=== PATIENT | female | born 1985 | race Caucasian/White ===

== ENCOUNTER 2016-09-30 21:34 | Emergency (ER) | payer OTHER ==
[~2016-09-30] VITALS: Ht 166.4 cm; Wt 85.5 kg
[2016-09-30 21:44] VITALS: TEMP 37.1; Ht 166.4 cm; Wt 85.5 kg
[2016-09-30] MEDS ORDERED: SODIUM CHLORIDE 0.9% 1000ML 1,000 ML IV STA (22:21)
[2016-09-30] MEDS ORDERED: ALBUT/IPRATROP 3MG/0.5MG NEB 3 ML VIAL INH STA (22:21)
[2016-09-30] MEDS ORDERED: DEXAMETHASONE SOD INJ 10 MG/ML VIAL IV ONE (22:30)
[2016-09-30 22:57] LABS: BASO % 0.5 %; BASO ABS # 0.02 K/uL (0-0.2); COMPLETE YES; HEMATOCRIT 43.7 % (37-47); IG% 0.2 %; LYMPH % 40.2 %; LYMPH ABS # 1.64 K/uL (1.2-3.4); MEAN CORPUSCULAR HEMOGLOBIN 33.2 pg (25-34); MEAN CORPUSCULAR HGB CONC 33.2 g/dl (32-36); MEAN PLATELET VOLUME 10.6 fL (7.4-10.4); NEUT % 43.1 %; PLATELET COUNT 200 K/uL (130-400); RED BLOOD COUNT 4.37 M/uL (4.2-5.4); WHITE BLOOD COUNT 4.08 K/uL (4.8-10.8)
[2016-09-30 23:16] LABS: BUN/CREATININE RATIO 10.6 (10-20); CALCIUM 8.9 mg/dl (8.5-10.1); CREATININE 0.94 mg/dl (0.60-1.20); MAGNESIUM 2.2 mg/dl (1.8-2.4); POTASSIUM 3.4 mmol/L (3.5-5.1)
[2016-10-01] MEDS ORDERED: AZITHROMYCIN 250 MG TAB PO ONE (00:15)
[2016-10-01] MEDS ORDERED: ALBUTEROL HFA 8 GM INHALER INH STA (00:15)
[2016-10-01] MEDS ORDERED: DiphenhydrAMINE HCL 50 MG/ML VIAL IV STA (00:28)
[2016-10-01 00:41] VITALS: BP 140/91; PULSE 97; O2SAT 98
[2016-10-01] MEDS ORDERED: AZIT-57 PO (00:59)
[2016-10-01] MEDS ORDERED: PRED50TA PO (00:59)
--- NOTE | 2016-10-01 01:00 | EMERGENCY ROOM VISIT NOTE ---
History First contact with patient: 22:07 Chief Complaint: ILLNESS Stated Complaint: ACHES, DIZZINESS, SORE, COUGHING History of Present Illness The patient is a 30 year old female who presents to the Emergency Department by private vehicle for evaluation of her achiness, dizziness, sore throat, and cough. She reports that she's also had a migraine headache. The patient reports a cough for last 3 days. She has had a cough to the point of feeling lightheaded and near-syncope. She denies any chest pain, hemoptysis, shortness of breath, or palpitations. The patient reports that she has had cold sweats as well as body aches. She's had diarrhea for the last 3 days as well. She reports chills. She denies any recent long distance travel. Patient is a daily smoker. She denies any use of control medications. He is no family history of blood clots or bleeding disorders. She rates her current discomfort as a 6/10. She has been using multiple [id number]-[id number] medications with moderate relief of symptoms. Review of Systems A complete 10-point Review of Systems was discussed with the patient, with pertinent positives and negatives listed in the History of Present Illness. All remaining Review of Systems questions can be considered negative unless otherwise specified. Social History Smoking Status: Current Every Day Smoker Smokeless Tobacco Use: No Alcohol Use: occasionally Marital Status: single Occupation Status: employed Current/Historical Medications Scheduled Azithromycin (Zithromax), 250 MG PO DAILY Prednisone (Prednisone), 50 MG PO DAILY Allergies Coded Allergies: Shellfish (Verified Allergy, Unknown, HIVES, 10/03/16) Physical Exam Vital Signs Date Time Temp Pulse Resp B/P Pulse Ox O2 Delivery O2 Flow Rate FiO2 10/01/16 00:41 97 18 140/91 98 Room Air 09/30/16 21:44 37.1 105 18 126/84 96 Room Air Pain Rating (0-10): 6 Physical Exam VITAL SIGNS - Vital signs and nursing notes were reviewed. GENERAL - Well nourished, well developed 30-year-old female in no acute distress. Pt communicates well with provider and answers questions appropriately. SKIN - Without rash. HEAD - NC/AT with no obvious deformities. EYES - PERRL with EOMI bilaterally. Sclera without injection. Palpebral conjunctiva pink and moist. EARS - No deformities of external structures noted on gross examination bilaterally. No pain elicited with palpation of the tragus bilaterally. External auditory canals without discharge or otorrhea. Tympanic membranes pearly lujan No retraction or bulging. No fluid or purulent material visualized behind the TM. Handle of malleus, umbo, cone of light, pars tensa/flaccid all easily visualized. NOSE - Midline and without cyanosis. No purulent drainage noted. Nasal mucosa without mucus discharge. MOUTH/OROPHARYNX - Without perioral cyanosis. Buccal mucosa pink and moist and without leukoplakia. Tongue midline with equal elevation of palate bilaterally. No tonsillar hypertrophy, erythema, or exudates noted. Good dentition noted. NECK - Neck with FROM. Supple to palpation. No lymphadenopathy noted. No nuchal rigidity. LUNGS - Chest wall symmetric without accessory muscle use, intercostals retractions, or central cyanosis. Normal vesicular breath sounds CTA B/L. No wheezes, rales, or rhonchi appreciated. CARDIAC - RRR with S1/S2. No murmur, rubs, or gallops appreciated. ABDOMEN - Abdominal contour flat without pulsations or visible masses. BS normoactive all four quadrants. No tenderness, palpable masses, hepatosplenomegaly, or ascites noted. Medical Decision & Procedures ER Provider Diagnostic Interpretation: Radiological imaging and reports were reviewed by myself. Radiologist's Interpretation as follows: CHEST 2 VIEWS ROUTINE CLINICAL HISTORY: cough/fever COMPARISON STUDY: No previous studies for comparison. FINDINGS: The bones soft tissues and hemidiaphragms are normal. The cardiomediastinal silhouette is normal. The lungs are clear. The pulmonary vasculature is normal. IMPRESSION: Negative chest. Laboratory Results 09/30/16 22:46 Red Blood Count 4.37, Mean Corpuscular Volume 100.0, Mean Corpuscular Hemoglobin 33.2, Mean Corpuscular Hemoglobin Concent 33.2, Mean Platelet Volume 10.6, Neutrophils (%) (Auto) 43.1, Lymphocytes (%) (Auto) 40.2, Monocytes (%) ( Auto) 15.0, Eosinophils (%) (Auto) 1.0, Basophils (%) (Auto) 0.5, Neutrophils # (Auto) 1.76, Lymphocytes # (Auto) 1.64, Monocytes # (Auto) 0.61, Eosinophils # ( Auto) 0.04, Basophils # (Auto) 0.02 09/30/16 22:46 Test 09/30/16 22:40 09/30/16 22:46 Influenza Type A Antigen Neg for Influ A (NEG) Influenza Type B Antigen Neg for Influ B (NEG) White Blood Count 4.08 K/uL (4.8-10.8) Red Blood Count 4.37 M/uL (4.2-5.4) Hemoglobin 14.5 g/dL (12.0-16.0) Hematocrit 43.7 % (37-47) Mean Corpuscular Volume 100.0 fL (80-100) Mean Corpuscular Hemoglobin 33.2 pg (25-34) Mean Corpuscular Hemoglobin Concent 33.2 g/dl (32-36) Platelet Count 200 K/uL (130-400) Mean Platelet Volume 10.6 fL (7.4-10.4) Neutrophils (%) (Auto) 43.1 % Lymphocytes (%) (Auto) 40.2 % Monocytes (%) (Auto) 15.0 % Eosinophils (%) (Auto) 1.0 % Basophils (%) (Auto) 0.5 % Neutrophils # (Auto) 1.76 K/uL (1.4-6.5) Lymphocytes # (Auto) 1.64 K/uL (1.2-3.4) Monocytes # (Auto) 0.61 K/uL (0.11-0.59) Eosinophils # (Auto) 0.04 K/uL (0-0.5) Basophils # (Auto) 0.02 K/uL (0-0.2) RDW Standard Deviation 48.0 fL (36.4-46.3) RDW Coefficient of Variation 13.1 % (11.5-14.5) Immature Granulocyte % (Auto) 0.2 % Immature Granulocyte # (Auto) 0.01 K/uL (0.00-0.02) Anion Gap 8.0 mmol/L (3-11) Est Creatinine Clear Calc Drug Dose 94.6 ml/min Estimated GFR () 93.7 Estimated GFR (Non- 80.8 BUN/Creatinine Ratio 10.6 (10-20) Calcium Level 8.9 mg/dl (8.5-10.1) Magnesium Level 2.2 mg/dl (1.8-2.4) Total Bilirubin 0.2 mg/dl (0.2-1) Aspartate Amino Transf (AST/SGOT) 27 U/L (15-37) Alanine Aminotransferase (ALT/SGPT) 60 U/L (12-78) Alkaline Phosphatase 91 U/L (45-117) Total Protein 7.7 gm/dl (6.4-8.2) Albumin 3.8 gm/dl (3.4-5.0) Globulin 3.9 gm/dl (2.5-4.0) Albumin/Globulin Ratio 1.0 (0.9-2) Lipase 176 U/L (73-393) Medications Administered Medications (Trade) Dose Ordered Sig/Ottoniel Route Start Time Stop Time Status Last Admin Dose Admin Sodium Chloride (Nss 1000ml) 1,000 ml @ 999 mls/hr Q1H1M STAT IV 09/30/16 22:21 09/30/16 23:21 DC 09/30/16 22:21 999 MLS/HR Dexamethasone Sodium Phosphate (Decadron Inj) 10 mg NOW ONCE IV 09/30/16 22:30 09/30/16 22:31 DC 09/30/16 22:30 10 MG Albuterol/ Ipratropium (Duoneb) 3 ml NOW STAT INH 09/30/16 22:21 09/30/16 22:23 DC 09/30/16 22:21 3 ML Albuterol (Ventolin Hfa Inhaler) 2 puffs ONE STAT INH 10/01/16 00:15 10/01/16 00:16 DC 10/01/16 00:36 2 PUFFS Azithromycin (Zithromax Tab) 500 mg NOW ONCE PO 10/01/16 00:15 10/01/16 00:16 DC 10/01/16 00:36 500 MG Diphenhydramine HCl (Benadryl Inj) 12.5 mg NOW STAT IV 10/01/16 00:28 10/01/16 00:29 DC 10/01/16 00:36 12.5 MG ED Course Patient was seen and evaluated by myself. Labs were drawn, saline lock in place. The patient was hydrated with a 1000 mL normal saline bolus. The patient was treated with 10 mg Decadron intravenously. She was provided a DuoNeb treatment. Laboratory results demonstrate mild leukopenia. The patient is not anemic. There are no significant electrolyte abnormalities. Patient was treated with azithromycin given her longevity of symptoms. She was provided an albuterol inhaler. She reports feeling flushed and itchy. She was treated with 12.5 mg Benadryl intravenously with moderate relief of symptoms. The patient was educated on following up with her primary care provider from today's visit. She was educated on worrisome symptoms for return visit to the emergency department. Patient discharged home afebrile and in good condition. Medical Decision Given the patient's presentation and stated complaint, I did elect to perform the above-mentioned workup. The patient presents to the emergency department with ongoing cough, bodyaches, and generalized illness. She is not hypoxic. She is not tachypneic. She is not overly tachycardic. Her exam is otherwise unremarkable. She's had ongoing symptoms for the past several days. She does have wheezes on exam. She responded to DuoNeb as well as Decadron. Patient was treated with azithromycin given her history of smoking. I do not suspect cardiac etiology at this point. Her symptoms are not typical for PE. The patient will follow-up with her primary care provider or return to the emergency department in the setting of any change or worsening symptoms. Patient discharged home afebrile and in good condition. In the evaluation and treatment of this patient, the following differential diagnoses were considered: SC, ASC, Dysrhythmia, Angina, Mediastinitis, GERD, Esophagitis, PE, Pneumonia, Bronchitis, Costochondritis, Rib Fracture, Zoster. Impression Primary Impression: Acute bronchitis Additional Impressions: Fever Body aches Departure Information Dispostion Home / Self-Care Condition GOOD Referrals Lyle Hubbard M.D. (PCP) Patient Instructions Bronchitis Acute, My [facility] Additional Instructions You have been seen in the emergency department today for aches, cough, fevers, dizziness. Please use the albuterol inhaler 2 puffs every 4-6 hours for the next 3-4 days and then as needed for cough. You have been prescribed Prednisone 50 mg to be taken orally once a day for the next 4 days. This is an anti-inflammatory medicine to be used to help minimize your symptoms. You should take the COMPLETE course of the medication. You were prescribed Azithromycin to be taken as prescribed. This is an antibiotic. All antibiotics have the potential to cause diarrhea. Stop this medication and contact a medical provider if you were to develop any significant adverse side effects including: wheezing, shortness of breath, passing out, vomiting, or a diffuse rash. Always take antibiotics as directed and COMPLETE the ENTIRE course regardless of the improvement of your symptoms. For pain control, you can use the following koay-jrg-exzzbpo medicines (if >12 yo): - Regular strength (325mg/tab) Tylenol (acetaminophen) 2 tabs every 4-6 hours as needed. Do not exceed 12 tablets in a 24 hour period. Avoid taking more than 4 grams (4000 mg) of Tylenol per day. This includes any other sources of acetaminophen you may take on a regular basis. - Regular strength (200 mg/tab) Advil (ibuprofen) 1-2 tabs every 4-6 hours as needed. Do not exceed a dose of 3200 mg per day. Follow-up with your primary care provider from today's visit. Return for any changing or worsening symptoms. Problem Qualifiers Primary Impression: Acute bronchitis Bronchitis organism: unspecified organism Qualified Codes: J20.9 - Acute bronchitis, unspecified Additional Impressions: Fever Fever type: unspecified Qualified Codes: R50.9 - Fever, unspecified
--- NOTE | 2016-10-01 07:40 | DIAGNOSTIC IMAGING REPORT ---
CHEST 2 VIEWS ROUTINE CLINICAL HISTORY: cough/fever COMPARISON STUDY: No previous studies for comparison. FINDINGS: The bones soft tissues and hemidiaphragms are normal. The cardiomediastinal silhouette is normal. The lungs are clear. The pulmonary vasculature is normal. IMPRESSION: Negative chest. Electronically signed by: Napoleon Pitts M.D. 10/01/2016 7:38 AM Dictated Date/Time: 10/01/2016 7:38 AM
== END 2016-10-01 01:01 | disposition home or self-care (01) ==
LOC: C.EDB 21:35 → C.EDC 10-01 01:01
DX: J20.9 Acute bronchitis, unspecified (principal); M79.1 Myalgia; F17.200 Nicotine dependence, unspecified, uncomplicated; Z91.018 Allergy to other foods

== ENCOUNTER 2016-10-03 10:47 | Emergency (ER) | payer OTHER ==
[~2016-10-03] VITALS: Ht 165.1 cm; Wt 82.6 kg
[~2016-10-03 10:47] MED LIST: AZIT-57 PO; PRED50TA PO
[2016-10-03 10:49] VITALS: TEMP 36.6; Ht 165.1 cm; Wt 82.6 kg
[2016-10-03] MEDS ORDERED: MoRPHine SULFATE 4 MG/ML 1 ML CARP\\VIAL IV STA (11:24)
[2016-10-03] MEDS ORDERED: ONDANSETRON INJ 2 MG/ML 2 ML VIAL IV STA (11:24)
[2016-10-03] MEDS ORDERED: AZIT250T PO (11:25)
[2016-10-03] MEDS ORDERED: PRED50TA PO (11:25)
--- NOTE | 2016-10-03 11:27 | EMERGENCY ROOM VISIT NOTE ---
History First contact with patient: 11:11 Chief Complaint: RIB PAIN Stated Complaint: RIB PAIN/BRONCHITIS History of Present Illness The patient is a 30 year old female who presents to the Emergency Room via private vehicle with complaints of "rib pain/bronchitis". The patient is in tears. She states that she was seen here on for 3 days of an illness which included coughing, chest congestion and phlegm. She states that she was given azithromycin and prednisone. She has been taking them as prescribed until this morning when she took all 5 of the prednisone tablets at once. She states this was an attempt to help clear the infection. It was 5, 10 mg tablets. It was a total of 50 mg 1. She states that the pain is in the right anterior inferior rib cage that began around 1 AM this morning. She rates the pain as an 8-9/10 at rest and when coughing a 20/10. There is associated shortness of breath. She has smoked in the past. She had asthma as a child. She denies any recent trauma, injury, prolonged travel, control. Review of Systems A complete 10-point Review of Systems was discussed with the patient, with pertinent positives and negatives listed in the History of Present Illness. All remaining Review of Systems questions can be considered negative unless otherwise specified. Past Medical/Surgical History Bronchitis Social History Smoking Status: Current Every Day Smoker Alcohol Use: occasionally Marital Status: single Occupation Status: employed Current/Historical Medications Scheduled Azithromycin (Zithromax), 250 MG PO DAILY Prednisone (Prednisone), 50 MG PO DAILY Allergies Coded Allergies: Shellfish (Verified Allergy, Unknown, HIVES, 10/03/16) Physical Exam Vital Signs Date Time Temp Pulse Resp B/P Pulse Ox O2 Delivery O2 Flow Rate FiO2 10/03/16 15:36 10/03/16 15:24 78 20 113/79 95 Room Air 10/03/16 13:47 74 20 120/77 95 Room Air 10/03/16 12:18 78 10/03/16 12:05 75 20 122/74 95 Room Air 10/03/16 12:05 95 Room Air 10/03/16 10:49 36.6 88 20 114/71 94 Room Air Physical Exam VITAL SIGNS - Vital signs and nursing notes were reviewed. Patient is afebrile , normotensive, non-tachycardic and is saturating on room air 94%. GENERAL -30-year-old female appearing her stated age who is in no acute distress but is tearful and appears to be in pain. Communicates well with provider and answers questions appropriately. SKIN - Without rashes. There are no breaks in the integument overlying the right anterior rib cage. HEAD - NC/AT. EYES - Sclera anicteric. Palpebral conjunctiva pink and moist with no injection noted. EARS - No deformities of external structures noted on gross examination bilaterally. NOSE - Midline and without cyanosis. No epistaxis or purulent drainage noted. MOUTH/OROPHARYNX - Without perioral cyanosis. Buccal mucosa pink and moist and without leukoplakia. Tongue midline with equal elevation of palate bilaterally. No tonsillar hypertrophy, erythema, or exudates noted. Fair dentition noted. NECK - Neck with FROM. Supple to palpation. No lymphadenopathy noted. No nuchal rigidity. No meningismus or signs of encephalitis. LUNGS - Chest wall symmetric without accessory muscle use, intercostals retractions, or central cyanosis. Normal vesicular breath sounds CTA B/L. No wheezes, rales, or rhonchi appreciated. There is pinpoint tenderness overlying the right anterior/lateral rib cage. CARDIAC - RRR with S1/S2. No murmur, rubs, or gallops appreciated. ABDOMEN - Abdominal contour without pulsations or visible masses. BS normoactive all four quadrants. There is right upper quadrant tenderness on palpation just inferior to the right rib cage. No palpable masses, hepatosplenomegaly, or ascites noted. EXTREMITIES - No clubbing or peripheral cyanosis. +5/5 strength noted in UE/LE bilaterally. NEUROLOGIC - Cranial nerves II through XII grossly intact. PSYCH - Pt is very pleasant and interacts well with examiner. Medical Decision & Procedures ER Provider Diagnostic Interpretation: RIGHT RIBS UNILATERAL WITH PA CHEST CLINICAL HISTORY: Right rib pain COMPARISON STUDY: No previous studies for comparison. FINDINGS: The erect chest reveals no pneumothorax. There is no focal pulmonary consolidation. No right-sided rib fractures are visualized. No destructive lesions are visualized on conventional radiographic imaging. IMPRESSION: No evidence of pneumothorax. No right-sided rib abnormalities identified Electronically signed by: Mathieu Fortune M.D. 10/03/2016 12:26 PM Dictated Date/Time: 10/03/2016 12:24 PM BILIARY ULTRASOUND CLINICAL HISTORY: Right upper quadrant abdominal pain COMPARISON STUDY: 05/30/2012 FINDINGS: The pancreas appears normal as visualized. No hepatic masses are visualized. The gallbladder appears sonographically normal. There is no ductal dilatation. The common bile duct measures 5 mm. There is no right-sided hydronephrosis. IMPRESSION: Normal biliary ultrasound. Electronically signed by: Mathieu Fortune M.D. 10/03/2016 12:41 PM Dictated Date/Time: 10/03/2016 12:[address] ANGIOGRAM OF THE CHEST CLINICAL HISTORY: Right-sided chest pain. COMPARISON STUDY: Chest x-ray dated 09/30/2016 TECHNIQUE: Following the IV administration of 94 mL of Optiray-320, CT angiogram of the thorax was performed from the thoracic inlet to the lung bases utilizing the pulmonary embolus protocol. Images are reviewed in the axial, sagittal, and coronal planes. IV contrast was administered without complication. MIP imaging was performed. CT DOSE: 391.08 mGy.cm FINDINGS: Mediastinal and hilar lymph nodes are at the upper limits of normal in size. There was no evidence of thoracic aortic dilatation. There were no pulmonary artery filling defects to indicate acute pulmonary embolism. No pleural effusions are visualized. There was no evidence of focal pulmonary consolidation. IMPRESSION: 1. No CT evidence of acute pulmonary embolism 2. No evidence of acute parenchymal consolidation. Electronically signed by: Mathieu Fortune M.D. 10/03/2016 2:13 PM Dictated Date/Time: 10/03/2016 2:05 PM Laboratory Results 10/03/16 11:40 Red Blood Count 4.47, Mean Corpuscular Volume 98.9, Mean Corpuscular Hemoglobin 32.0, Mean Corpuscular Hemoglobin Concent 32.4, Mean Platelet Volume 10.3, Neutrophils (%) (Auto) 78.7, Lymphocytes (%) (Auto) 16.1, Monocytes (%) (Auto) 5.0, Eosinophils (%) (Auto) 0.0, Basophils (%) (Auto) 0.1, Neutrophils # (Auto) 5.38, Lymphocytes # (Auto) 1.10, Monocytes # (Auto) 0.34, Eosinophils # (Auto) 0.00, Basophils # (Auto) 0.01 10/03/16 11:40 Test 10/03/16 11:40 10/03/16 11:45 10/03/16 11:46 10/03/16 13:40 White Blood Count 6.84 K/uL (4.8-10.8) Red Blood Count 4.47 M/uL (4.2-5.4) Hemoglobin 14.3 g/dL (12.0-16.0) Hematocrit 44.2 % (37-47) Mean Corpuscular Volume 98.9 fL (80-100) Mean Corpuscular Hemoglobin 32.0 pg (25-34) Mean Corpuscular Hemoglobin Concent 32.4 g/dl (32-36) Platelet Count 194 K/uL (130-400) Mean Platelet Volume 10.3 fL (7.4-10.4) Neutrophils (%) (Auto) 78.7 % Lymphocytes (%) (Auto) 16.1 % Monocytes (%) (Auto) 5.0 % Eosinophils (%) (Auto) 0.0 % Basophils (%) (Auto) 0.1 % Neutrophils # (Auto) 5.38 K/uL (1.4-6.5) Lymphocytes # (Auto) 1.10 K/uL (1.2-3.4) Monocytes # (Auto) 0.34 K/uL (0.11-0.59) Eosinophils # (Auto) 0.00 K/uL (0-0.5) Basophils # (Auto) 0.01 K/uL (0-0.2) RDW Standard Deviation 48.1 fL (36.4-46.3) RDW Coefficient of Variation 13.3 % (11.5-14.5) Immature Granulocyte % (Auto) 0.1 % Immature Granulocyte # (Auto) 0.01 K/uL (0.00-0.02) Prothrombin Time 10.4 SECONDS (9.0-12.0) Prothromb Time International Ratio 1.0 (0.9-1.1) Activated Partial Thromboplast Time 27.8 SECONDS (21.0-31.0) Partial Thromboplastin Ratio 1.1 Anion Gap 12.0 mmol/L (3-11) Est Creatinine Clear Calc Drug Dose 87.4 ml/min Estimated GFR () 88.0 Estimated GFR (Non- 75.9 BUN/Creatinine Ratio 19.2 (10-20) Calcium Level 8.7 mg/dl (8.5-10.1) Magnesium Level 2.2 mg/dl (1.8-2.4) Total Bilirubin 0.5 mg/dl (0.2-1) Aspartate Amino Transf (AST/SGOT) 42 U/L (15-37) Alanine Aminotransferase (ALT/SGPT) 74 U/L (12-78) Alkaline Phosphatase 77 U/L (45-117) Total Creatine Kinase 78 U/L (26-192) Creatine Kinase MB < 0.5 ng/ml (0.5-3.6) Creatine Kinase MB Ratio (0-3.0) Total Protein 7.6 gm/dl (6.4-8.2) Albumin 4.0 gm/dl (3.4-5.0) Globulin 3.6 gm/dl (2.5-4.0) Albumin/Globulin Ratio 1.1 (0.9-2) Lipase 221 U/L (73-393) Thyroid Stimulating Hormone (TSH) 0.908 uIu/ml (0.300-4.500) Influenza Type A Antigen Neg for Influ A (NEG) Influenza Type B Antigen POS for Influ B (NEG) Bedside Troponin I 0.000 ng/ml (0-0.045) Urine Color YELLOW Urine Appearance CLEAR (CLEAR) Urine pH 5.0 (4.5-7.5) Urine Specific [place] 1.026 (1.000-1.030) Urine Protein NEG (NEG) Urine Glucose (UA) NEG (NEG) Urine Ketones TRACE (NEG) Urine Occult Blood NEG (NEG) Urine Nitrite NEG (NEG) Urine Bilirubin NEG (NEG) Urine Urobilinogen NEG (NEG) Urine Leukocyte Esterase NEG (NEG) Urine Test NEG (NEG) Medications Administered Medications (Trade) Dose Ordered Sig/Ottoniel Route Start Time Stop Time Status Last Admin Dose Admin Morphine Sulfate (MoRPHine SULFATE INJ) 4 mg NOW STAT IV 10/03/16 11:24 10/03/16 11:26 DC 10/03/16 11:55 4 MG Ondansetron HCl (Zofran Inj) 4 mg NOW STAT IV 10/03/16 11:24 10/03/16 11:26 DC 10/03/16 11:55 4 MG Ketorolac Tromethamine (Toradol Inj) 30 mg NOW STAT IV 10/03/16 14:47 10/03/16 14:48 DC 10/03/16 15:09 30 MG Medical Decision Patient was seen and evaluated as above. Previous visit was reviewed. She was previously diagnosed with bronchitis and provided with azithromycin and a steroid. On previous visit she was found to be influenza negative. She presents today with an acute worsening of her symptoms as well as right anterior rib pain. There is concern for cardiac etiologies, as well as pulmonary causes. Right upper quadrant causes could also not be excluded. IV access was initiated and the above workup was performed. She requested something for pain, and therefore was given morphine and Zofran. CBC reveals no leukocytosis, or anemia. PT/INR within normal limits. CMP reveals BUN of 19 , who said 112, AST at 42. See troponin was 0 and TSH within lipase within normal limits. Chest x-ray with ribs was unremarkable. Gallbladder ultrasound unremarkable. The patient had persistent pain and shortness of breath therefore was confirmed concern for PE. I did elect to obtain a CT scan of the chest. This was negative for acute process. Her urine revealed trace ketone, and was negative. She was found to be positive for influenza B. I do suspect that the patient is experiencing pleurisy secondary to influenza. There is no evidence of pneumonia or PE. Discussed the case with my attending, and subsequently it was decided to provide her with Toradol as well as treat with outpatient anti-inflammatories for the pleurisy. Of abnormal note, her EKG did reveal nonspecific ST abnormalities, without evidence of acute ectopy or ischemic change. There is no previous for comparison. With her troponin being negative I do not suspect any acute cardiac causes however do believe that a repeat with her family doctor would be warranted. I do believe that she should also have her AST repeated she has had an interval elevation of this value. She is to follow-up with her family doctor regarding today's visit, was educated upon management, was educated upon worrisome symptoms which to return and was discharged home in good condition. In evaluation treatment this patient the following differential diagnoses were entertained: NC, PE, pleurisy, pericarditis, influenza, bronchitis, pneumonia, cholecystitis, choledocholithiasis, among others. Impression Primary Impression: Pleurisy with influenza Additional Impression: Elevated AST (SGOT) Departure Information Dispostion Home / Self-Care Condition [employer] Referrals Lyle Hubbard M.D. (PCP) Patient Instructions [facility] Additional Instructions You were seen in the emergency department for your right anterior rib pain. Chest x-ray, and CTA does not reveal any fracture or evidence of blood clot. There is no evidence of pneumonia. Your AST, which is a liver chemical was slightly elevated. Please follow-up with your family doctor regarding this. It is recommended you have an EKG repeated, there was a nonspecific ST abnormality noted here. Please follow-up with your family doctor regarding this. Please follow up with your family doctor regarding today's visit by calling them first thing tomorrow. Please return to emergency department with any new/ concerning symptoms. Please alternate Tylenol and ibuprofen. Please take this according to package instructions. Please do not exceed the recommendations according to the package. Please rest and drink plenty of fluids. It is recommended you drink water or Gatorade. Problem Qualifiers
[2016-10-03 11:52] LABS: HEMATOCRIT 44.2 % (37-47); MEAN CELL VOLUME 98.9 fL (80-100); MEAN CORPUSCULAR HGB CONC 32.4 g/dl (32-36); MEAN PLATELET VOLUME 10.3 fL (7.4-10.4); PLATELET COUNT 194 K/uL (130-400); RED BLOOD COUNT 4.47 M/uL (4.2-5.4); WHITE BLOOD COUNT 6.84 K/uL (4.8-10.8)
[2016-10-03 12:05] VITALS: O2SAT 95
[2016-10-03 12:08] LABS: PARTIAL THROMBOPLASTIN RATIO 1.1; PROTHROMBIN TIME (PATIENT) 10.4 SECONDS (9.0-12.0)
[2016-10-03 12:15] LABS: ALT/SGPT 74 U/L (12-78); AST/SGOT 42 U/L (15-37); BLOOD UREA NITROGEN 19 mg/dl (7-18); BUN/CREATININE RATIO 19.2 (10-20); CALCIUM 8.7 mg/dl (8.5-10.1); CARBON DIOXIDE 23 mmol/L (21-32); CHLORIDE 105 mmol/L (98-107); CREATININE 0.99 mg/dl (0.60-1.20); GLUCOSE 112 mg/dl (70-99); MAGNESIUM 2.2 mg/dl (1.8-2.4); POTASSIUM 3.6 mmol/L (3.5-5.1); SODIUM 140 mmol/L (136-145)
[2016-10-03 12:18] LABS: BASO % 0.1 %; BASO ABS # 0.01 K/uL (0-0.2); COMPLETE YES; IG% 0.1 %; LYMPH % 16.1 %; NEUT % 78.7 %
[2016-10-03 12:27] LABS: ALB/GLOB RATIO 1.1 (0.9-2); ALKALINE PHOSPHATASE 77 U/L (45-117); THYROID STIMULATING HORMONE 0.908 uIu/ml (0.300-4.500)
--- NOTE | 2016-10-03 12:28 | DIAGNOSTIC IMAGING REPORT ---
RIGHT RIBS UNILATERAL WITH PA CHEST CLINICAL HISTORY: Right rib pain COMPARISON STUDY: No previous studies for comparison. FINDINGS: The erect chest reveals no pneumothorax. There is no focal pulmonary consolidation. No right-sided rib fractures are visualized. No destructive lesions are visualized on conventional radiographic imaging. IMPRESSION: No evidence of pneumothorax. No right-sided rib abnormalities identified Electronically signed by: Mathieu Fortune M.D. 10/03/2016 12:26 PM Dictated Date/Time: 10/03/2016 12:24 PM
--- NOTE | 2016-10-03 12:43 | DIAGNOSTIC IMAGING REPORT ---
BILIARY ULTRASOUND CLINICAL HISTORY: Right upper quadrant abdominal pain COMPARISON STUDY: 05/30/2012 FINDINGS: The pancreas appears normal as visualized. No hepatic masses are visualized. The gallbladder appears sonographically normal. There is no ductal dilatation. The common bile duct measures 5 mm. There is no right-sided hydronephrosis. IMPRESSION: Normal biliary ultrasound. Electronically signed by: Mathieu Fortune M.D. 10/03/2016 12:41 PM Dictated Date/Time: 10/03/2016 12:40 PM
[2016-10-03 13:57] LABS: URINE APPEARANCE CLEAR (CLEAR); URINE BILIRUBIN NEG (NEG); URINE COLOR YELLOW; URINE NITRITE NEG (NEG); URINE SPECIFIC GRAVITY 1.026 (1.000-1.030); UROBILINOGEN NEG (NEG); ZZUR CULT IF INDIC CLEAN CATCH NO
[2016-10-03 13:58] LABS: MANUAL MICROSCOPIC REQUIRED? NO; REVIEW REQ? NO
[2016-10-03] MEDS ORDERED: OPTIRAY 320 IV PRN (14:00)
--- NOTE | 2016-10-03 14:15 | DIAGNOSTIC IMAGING REPORT ---
CT ANGIOGRAM OF THE CHEST CLINICAL HISTORY: Right-sided chest pain. COMPARISON STUDY: Chest x-ray dated 09/30/2016 TECHNIQUE: Following the IV administration of 94 mL of Optiray-320, CT angiogram of the thorax was performed from the thoracic inlet to the lung bases utilizing the pulmonary embolus protocol. Images are reviewed in the axial, sagittal, and coronal planes. IV contrast was administered without complication. MIP imaging was performed. CT DOSE: 391.08 mGy.cm FINDINGS: Mediastinal and hilar lymph nodes are at the upper limits of normal in size. There was no evidence of thoracic aortic dilatation. There were no pulmonary artery filling defects to indicate acute pulmonary embolism. No pleural effusions are visualized. There was no evidence of focal pulmonary consolidation. IMPRESSION: 1. No CT evidence of acute pulmonary embolism 2. No evidence of acute parenchymal consolidation. Electronically signed by: Mathieu Fortune M.D. 10/03/2016 2:13 PM Dictated Date/Time: 10/03/2016 2:05 PM
[2016-10-03] MEDS ORDERED: KETOROLAC TROMETHAMINE 30 MG/ML VIAL IV STA (14:47)
[2016-10-03 15:24] VITALS: BP 113/79; PULSE 78; O2SAT 95
== END 2016-10-03 15:37 | disposition home or self-care (01) ==
LOC: C.EDB 10:48 → C.EDC 15:37
DX: R09.1 Pleurisy (principal); J11.1 Influenza due to unidentified influenza virus with other respiratory manifestations; R74.8 Abnormal levels of other serum enzymes; F17.200 Nicotine dependence, unspecified, uncomplicated